=== PATIENT | male | born 1965 | race Caucasian/White ===

== ENCOUNTER 2022-08-31 17:36 | Inpatient (IN) ==
[2022-08-31] MEDS ORDERED: NITROGLYCERIN SL 0.4 MG/TAB TAB SL STA ×2 (18:06→18:27)
[2022-08-31] MEDS ORDERED: SODIUM CHLORIDE 0.9% 1000ML 500 ML IV ONE (18:06)
[2022-08-31] MEDS ORDERED: MoRPHine SULFATE 4 MG/ML 1 ML CARP\\VIAL ONE (18:22)
[2022-08-31 18:25] LABS: Basophils # (auto) 0.12 K/uL (0-0.2); Basophils % (auto) 0.9 %; Eosinophils # (auto) 0.07 K/uL (0-0.50); Eosinophils % (auto) 0.5 %; Hematocrit (blood only) 45.3 % (42.0-52.0); Hemoglobin 15.5 g/dl (14.0-18.0); Immature Granulocytes # (auto) 0.05 K/uL (0.01-0.20); Immature Granulocytes % (auto) 0.4 %; Lymphocytes # (auto) 4.33 K/uL (1.2-3.4); Lymphocytes % (auto) 31.7 %; Mean Corpuscular Hemoglobin 31.1 pg (25.0-34.0); Mean Corpuscular Hgb Conc 34.2 g/dL (32.0-36.0); Mean Platelet Volume 10.2 fL (9.4-12.4); Monocytes # (auto) 0.59 K/uL (0.11-0.59); Monocytes % (auto) 4.3 %; Neutrophils # (auto) 8.48 K/uL (1.40-6.50); Neutrophils % (auto) 62.2 %; Platelet Count 368 K/uL (130-400); RDW Coefficient of Variation 13.1 % (11.5-14.5); RDW Standard Deviation 43.6 fL (36.4-46.3); Red Blood Count 4.98 M/uL (4.70-6.10); White Blood Count 13.64 K/ul (4.8-10.8)
--- NOTE | 2022-08-31 18:28 | Emergency Department Note ---
Impression & Plan ST elevation myocardial infarction (STEMI), Chest pain, Nausea, Diaphoresis ED Provider Note Provider: Cristian Ahn MD DATE OF SERVICE: 08/31/2022 CHIEF COMPLAINT: Chest discomfort, nausea, shortness of breath HISTORY OF PRESENT ILLNESS: Patient is a 57-year-old gentleman presenting via am bulance the onset between 4 and 430 this afternoon of significant chest discomfort radiating to the jawline experience nausea and episode of vomiting this is some shortness of breath. Was pale and diaphoretic according to family and EMS upon arrival. Patient's symptoms have abated some with IV fluids and aspirin and Zofran in route. Denies significant GI upset. States he had a little bit of increased fatigability over the past month. Rates his pain currently at 6 out of 10 across the chest to the bilateral jaw. Denies any trauma or syncope. PAST MEDICAL HISTORY: As noted above MEDICATIONS: Denies regular medications FMH: When asked he reports he does have a family history but does not elaborate further for cardiac disease SOCIAL HISTORY: , smoker PHYSICAL EXAM: GENERAL: alert and oriented in no acute distress on stretcher Head: normocephalic and atraumatic EYES: No injection, discharge or icterus. NECK: Trachea midline. ENT: Mucous membranes pink and moist. LUNGS: Airway patent. No retractions. Breath sounds clear with good air entry bilaterally. HEART: Regular rate and rhythm. No chest wall tenderness ABDOMEN: Soft and non-tender, without guarding or rebound. SKIN: Acyanotic, warm, still slightly diaphoretic, without rashes EXTREMITIES: Without swelling, tenderness or deformity NEUROLOGICAL: No focal deficits. No aphasia. No facial droop or slurred speech. EK bpm normal sinus rhythm. No PVC or PAC. QTc 433. No acute ST segment elevation with some slight prominence of the V3 ST segment but no clear contiguous ST elevation. EKG: Completed at 1814: 80 bpm normal sinus rhythm with peaked anterior lateral T waves with ST segment elevation in V1 through V3 with some lead I and II ST depression noted. QTc 431. EK: 70 bpm normal sinus rhythm with sinus arrhythmia. No PVC or PAC. Improvement of anterior ST elevation from prior. No significant inferior ST depression noted. CONTINUOUS CARDIAC MONITORING: was ordered and showed a heart rate of 60s-80s bpm in normal sinus rhythm Patient's laboratory studies and imaging reviewed. Differential includes Cardiac ischemia, aortic dissection, pulmonary embolism, pneumothorax, pneumonia, pericarditis, myocarditis, esophageal rupture, GERD, cholecystitis, pancreatitis, musculoskeletal, as well as other pathologies. IMPRESSION/MEDICAL DECISION MAKING: Patient received after Zofran prior to arrival with some IV fluid. General chest pain shortness of breath with nausea and vomiting and diaphoresis as well as pallor reported. Patient with some improvement upon arrival initially. Initial EKG without clear ST segment elevation. Basic labs were ordered. Question possible cardiac event but no clear STEMI initially. Patient while here undergoing work-up in short order had onset of maximal pain. Tachypneic and pale in appearance appears in some distress. Repeat EKG obtained with concerning precordial/anterior ST elevation with some slight inferior depression. Heart alert was called. Patient given nitroglycerin and in short order his pain began to moderate. Repeat EKGs obtained showed less prominent ST elevation. thread spinner evaluated at bedside and discussed with the patient while he is having some improvement of symptoms now given the EKG changes recommendation is for cardiac catheterization. Held off on chest x-ray and I low suspicion for pneumonia, pneumothorax, or PE at this time. Not severely hypertensive and low suspicion for dissection. Discussion with well surveying engineer ordered Brilinta and heparin per his direction. Updated patient's and patient taken to the cardiac catheterization lab for further care and evaluation of what appears to be concerning coronary artery disease. Basic blood work without anemia. Slight leukocytosis could be reactive. No significant kidney dysfunction with mild hypokalemia 3.2 noted. Initial high- sensitivity troponin is elevated at 28 with normal lipase. Again to the Core Winding Operator for emergent care prior to full results available blood work. DIAGNOSIS: STEMI, chest pain DISPOSITION: Taken to the cardiac catheterization lab for evaluation Critical Care I have personally spent 31 minutes of critical care time in the direct management of this patient. This includes bedside care, interpretation of diagnostic studies, and testing, discussion with consultants, patient, and family members, and other required patient management activities. These 31 minutes is in excess of all separately billable procedures. Past Med/Surg History Social History Smoking Status: Current every day smoker Tobacco Type: Cigarettes Feels Safe at Home: Yes Allergies Allergies Allergy/AdvReac Type Severity Reaction Status Date / Time PENICILLIN Allergy unknown Uncoded 08/31/22 18:57 Home Meds Home Medications Medication Instructions Recorded Confirmed No Known Home Medications 08/31/22 08/31/22 Results & Data (ED) Vital Signs Vital Signs - 24 hr 08/31/22 17:20 08/31/22 17:20 08/31/22 17:46 Temperature 36.5 C Temperature Source Oral Pulse Rate 61 Pulse Rate from SpO2 Sensor Respiratory Rate 15 Respiratory Effort / Characteristics Non-Labored Spontaneous Respiratory Depth Normal Respiratory Pattern Regular Blood Pressure 142/97 H Blood Pressure Mean 112 Pulse Oximetry 99 99 99 Oxygen Delivery Method Room Air Room Air Room Air Oxygen Flow Rate 0 Sepsis Recent Fever Within 48 Hours No Sepsis New/Unexplained Change in Mental Status N/A Sepsis Action Taken by Nursing No Action Required 08/31/22 17:52 08/31/22 17:44 08/31/22 17:50 Temperature Temperature Source Pulse Rate 60 72 71 Pulse Rate from SpO2 Sensor 68 71 Respiratory Rate 12 19 Respiratory Effort / Characteristics Respiratory Depth Respiratory Pattern Blood Pressure Blood Pressure Mean Pulse Oximetry 94 98 Oxygen Delivery Method Oxygen Flow Rate Sepsis Recent Fever Within 48 Hours Sepsis New/Unexplained Change in Mental Status Sepsis Action Taken by Nursing 08/31/22 18:00 08/31/22 18:00 08/31/22 18:10 Temperature Temperature Source Pulse Rate 70 68 Pulse Rate from SpO2 Sensor 71 66 Respiratory Rate 11 L 16 Respiratory Effort / Characteristics Respiratory Depth Respiratory Pattern Blood Pressure 134/85 Blood Pressure Mean 102 Pulse Oximetry 94 100 Oxygen Delivery Method Oxygen Flow Rate Sepsis Recent Fever Within 48 Hours Sepsis New/Unexplained Change in Mental Status Sepsis Action Taken by Nursing 08/31/22 18:20 08/31/22 18:20 08/31/22 18:29 Temperature Temperature Source Pulse Rate 70 81 Pulse Rate from SpO2 Sensor 69 Respiratory Rate 15 17 Respiratory Effort / Characteristics Respiratory Depth Respiratory Pattern Blood Pressure 148/91 H Blood Pressure Mean 103 Pulse Oximetry 97 Oxygen Delivery Method Oxygen Flow Rate Sepsis Recent Fever Within 48 Hours Sepsis New/Unexplained Change in Mental Status Sepsis Action Taken by Nursing 08/31/22 18:29 08/31/22 18:30 08/31/22 18:40 Temperature Temperature Source Pulse Rate 84 88 Pulse Rate from SpO2 Sensor 81 89 Respiratory Rate 14 16 Respiratory Effort / Characteristics Respiratory Depth Respiratory Pattern Blood Pressure 124/87 Blood Pressure Mean 95 Pulse Oximetry 99 94 Oxygen Delivery Method Room Air Oxygen Flow Rate Sepsis Recent Fever Within 48 Hours Sepsis New/Unexplained Change in Mental Status Sepsis Action Taken by Nursing Laboratory Data 08/31/22 17:51 08/31/22 17:51 Lab Results 08/31/22 08/31/22 08/31/22 Range/Units 17:51 17:51 17:51 WBC 13.64 H (4.8-10.8) K/ul RBC 4.98 (4.70-6.10) M/uL Hgb 15.5 (14.0-18.0) g/dl Hct 45.3 (42.0-52.0) % MCV 91.0 (80.0-100.0) fL MCH 31.1 (25.0-34.0) pg MCHC 34.2 (32.0-36.0) g/dL RDW Std Deviation 43.6 (36.4-46.3) fL RDW Coeff of Brayden 13.1 (11.5-14.5) % Plt Count 368 (130-400) K/uL MPV 10.2 (9.4-12.4) fL Immature Gran % (Auto) 0.4 % Neut % (Auto) 62.2 % Lymph % (Auto) 31.7 % [place] % (Auto) 4.3 % Eos % (Auto) 0.5 % Baso % (Auto) 0.9 % Neut # (Auto) 8.48 H (1.40-6.50) K/uL Lymph # (Auto) 4.33 H (1.2-3.4) K/uL [place] # (Auto) 0.59 (0.11-0.59) K/uL Eos # (Auto) 0.07 (0-0.50) K/uL Baso # (Auto) 0.12 (0-0.2) K/uL Immature Gran # (Auto) 0.05 (0.01-0.20) K/uL PT 10.5 (9.0-12.0) Seconds INR 1.0 (0.9-1.1) APTT 22.9 (21.0-31.0) Seconds PTT Ratio 0.8 Sodium 140 (136-145) mmol/L Potassium 3.2 L (3.5-5.1) mmol/L Chloride 105 (98-107) mmol/L Carbon Dioxide 23 (21-32) mmol/L Anion Gap 12 H (3-11) BUN 17 (6-23) mg/dl Creatinine 0.99 (0.6-1.4) mg/dl Est Cr Clr Drug Dosing 99.1 ml/min Est GFR ( Amer) 98.3 ml/min Est GFR (Non-Af Amer) 84.8 ml/min BUN/Creatinine Ratio 17.2 (10-20) Glucose 133 H (70-99(Fasting)) mg/dl Calcium 9.6 (8.6-10.3) mg/dl Total Bilirubin 0.4 (0.2-1.0) mg/dl AST 17 (13-39) U/L ALT 23 (7-52) U/L Alkaline Phosphatase 84 (34-104) U/L Troponin I High Sens 28.8 H (0-20) pg/ml Total Protein 7.5 (6.0-8.3) gm/dl Albumin 4.6 (3.4-5.0) gm/dl Globulin 2.9 (2.5-4.0) gm/dl Albumin/Globulin Ratio 1.6 (0.9-2) Lipase 5 L (11-82) U/L SARS-CoV-2, RNA, NAAT (NEGATIVE) 08/31/22 Range/Units 18:38 WBC (4.8-10.8) K/ul RBC (4.70-6.10) M/uL Hgb (14.0-18.0) g/dl Hct (42.0-52.0) % MCV (80.0-100.0) fL MCH (25.0-34.0) pg MCHC (32.0-36.0) g/dL RDW Std Deviation (36.4-46.3) fL RDW Coeff of Brayden (11.5-14.5) % Plt Count (130-400) K/uL MPV (9.4-12.4) fL Immature Gran % (Auto) % Neut % (Auto) % Lymph % (Auto) % [place] % (Auto) % Eos % (Auto) % Baso % (Auto) % Neut # (Auto) (1.40-6.50) K/uL Lymph # (Auto) (1.2-3.4) K/uL [place] # (Auto) (0.11-0.59) K/uL Eos # (Auto) (0-0.50) K/uL Baso # (Auto) (0-0.2) K/uL Immature Gran # (Auto) (0.01-0.20) K/uL PT (9.0-12.0) Seconds INR (0.9-1.1) APTT (21.0-31.0) Seconds PTT Ratio Sodium (136-145) mmol/L Potassium (3.5-5.1) mmol/L Chloride (98-107) mmol/L Carbon Dioxide (21-32) mmol/L Anion Gap (3-11) BUN (6-23) mg/dl Creatinine (0.6-1.4) mg/dl Est Cr Clr Drug Dosing ml/min Est GFR ( Amer) ml/min Est GFR (Non-Af Amer) ml/min BUN/Creatinine Ratio (10-20) Glucose (70-99(Fasting)) mg/dl Calcium (8.6-10.3) mg/dl Total Bilirubin (0.2-1.0) mg/dl AST (13-39) U/L ALT (7-52) U/L Alkaline Phosphatase (34-104) U/L Troponin I High Sens (0-20) pg/ml Total Protein (6.0-8.3) gm/dl Albumin (3.4-5.0) gm/dl Globulin (2.5-4.0) gm/dl Albumin/Globulin Ratio (0.9-2) Lipase (11-82) U/L SARS-CoV-2, RNA, NAAT NEGATIVE (NEGATIVE) Administered Medications Discontinued Medications Heparin Sodium (Porcine) (Heparin Sod (Porcine) 1000 Unit/Ml) 5,000 units IV NOW ONE Stop: 08/31/22 18:38 Last Admin: 08/31/22 18:40 Dose: 5,000 units Documented By: DEMI Co-signed By: BALTAZAR Sodium Chloride (Nss 1000ml) 500 mls @ 999 mls/hr IV .Q31M ONE Stop: 08/31/22 18:36 Last Admin: 08/31/22 18:15 Dose: 999 mls/hr Documented By: DEMI Nitroglycerin (Nitroglycerin Sl 0.4 Mg/Tab Tab) 0.4 mg SL NOW STA Stop: 08/31/22 18:07 Last Admin: 08/31/22 18:15 Dose: 0.4 mg Documented By: DEMI Nitroglycerin (Nitroglycerin Sl 0.4 Mg/Tab Tab) 0.4 mg SL NOW STA Stop: 08/31/22 18:28 Last Admin: 08/31/22 18:23 Dose: 0.4 mg Documented By: DEMI Ticagrelor (Ticagrelor 90 Mg Tab) 180 mg PO ONE ONE Stop: 08/31/22 18:38 Last Admin: 08/31/22 18:39 Dose: 180 mg Documented By: DEMI Discharge Plan Visit Data Chief Complaint: Chest Pain ED Provider: Cristian Ahn Patient Disposition: Admitted As Inpatient Discharge Instructions Interventions: ED Discharge Assessment Last Done: 08/31/22 18:45 Prescriptions Prescriptions: No Action No Known Home Medications
[2022-08-31] MEDS ORDERED: MIDAZOLAM HCL 1 MG/ML 2ML VIAL ONE (18:36)
[2022-08-31] MEDS ORDERED: NITROGLYCERIN/D5W 100MCG/ML 20ML SYR ONE (18:37)
[2022-08-31] MEDS ORDERED: TICAGRELOR 90 MG TAB PO ONE (18:37)
[2022-08-31] MEDS ORDERED: HEPARIN SOD (PORCINE) 1000 UNIT/ML IV ONE (18:37)
[2022-08-31] MEDS ORDERED: HEPARIN SOD (PORCINE) 1000 UNIT/ML ONE (18:37)
[2022-08-31] MEDS ORDERED: HEPARIN (PORCINE) 1000 UNIT/ML 10 ML (CATH LAB USE ONLY) ONE (18:37)
[2022-08-31] MEDS ORDERED: TICAGRELOR 90 MG TAB ONE (18:37)
[2022-08-31] MEDS ORDERED: niCARdipine HCL INJ 2.5 MG/ML 10 ML AMP ONE (18:37)
[2022-08-31] MEDS ORDERED: fentaNYL citrate PF 100 MCG/2 ML VIAL ONE (18:37)
[2022-08-31 18:43] LABS: Albumin Globulin Ratio 1.6 (0.9-2); Albumin Level 4.6 gm/dl (3.4-5.0); BUN Creatinine Ratio 17.2 (10-20); Bilirubin,Total 0.4 mg/dl (0.2-1.0); Calcium 9.6 mg/dl (8.6-10.3); Creatinine Clr Calc Pharmacy 99.1 ml/min; Est GFR (African American) 98.3 ml/min; Est GFR (Non-African American) 84.8 ml/min; Globulin 2.9 gm/dl (2.5-4.0); Potassium 3.2 mmol/L (3.5-5.1); Total Protein 7.5 gm/dl (6.0-8.3)
[2022-08-31 18:49] LABS: Troponin I High Sensitivity 28.8 pg/ml (0-20)
[2022-08-31 18:54] LABS: Partial Thromboplastin Ratio 0.8; Partial Thromboplastin Time 22.9 Seconds (21.0-31.0); Prothrombin Time 10.5 Seconds (9.0-12.0)
[2022-08-31] MEDS ORDERED: EPTIFIBATIDE 2 MG/ML 10 ML VIAL (CATH LAB USE ONLY) IV ONE (19:43)
[2022-08-31] MEDS ORDERED: ONDANSETRON INJ 2 MG/ML 2 ML VIAL IV PRN (20:15)
[2022-08-31] MEDS ORDERED: EPTIFIBATIDE BOLUS/DRIP IV STA (20:15)
[2022-08-31] MEDS ORDERED: ATROPINE SULFATE 0.1 MG/ML 10ML SYR IV PRN (20:15)
[2022-08-31] MEDS ORDERED: POTASSIUM CHLORIDE CRTAB 20 MEQ TABCR PO STA (20:29)
[2022-08-31] MEDS: EPTIFIBATIDE 75 MG/100 ML VIAL IV SCH (20:30)
--- NOTE | 2022-08-31 20:32 | Pre Anesthesia Assessment ---
Date of Service August 31, 2022 Pre Sedation Assessment Vital Signs Temp Pulse Resp BP Pulse Ox O2 Del Method O2 Flow Rate 08/31/22 18:40 88 16 94 Room Air 08/31/22 18:30 84 14 99 08/31/22 18:29 124/87 08/31/22 18:29 81 17 08/31/22 18:20 70 15 97 08/31/22 18:20 148/91 H 08/31/22 18:10 68 16 100 08/31/22 18:00 70 11 L 94 08/31/22 18:00 134/85 08/31/22 17:50 71 19 98 08/31/22 17:44 72 12 94 08/31/22 17:52 60 08/31/22 17:46 99 Room Air 08/31/22 17:20 99 Room Air 0 08/31/22 17:20 36.5 C 61 15 142/97 H 99 Room Air Cardiovascular RRR, no murmur, no edema Respiratory normal respiratory effort, lungs clear to auscultation Pre-Sedation Airway Assessment Smoking Status: Current every day smoker Mallampati 2 ASA IV Notes The planned sedation has been discussed with the patient. Informed Consent was obtained. I have identified the patient, determined the appropriateness of sedation and have assessed the patient immediately prior to the procedure. All medicine(s) and interventions are by my order.
--- NOTE | 2022-08-31 20:34 | Post Anesthesia Assessment ---
Date of Service August 31, 2022 Post Sedation Assessment Vital Signs Temp Pulse Resp BP Pulse Ox O2 Del Method O2 Flow Rate 08/31/22 18:40 88 16 94 Room Air 08/31/22 18:30 84 14 99 08/31/22 18:29 124/87 08/31/22 18:29 81 17 08/31/22 18:20 70 15 97 08/31/22 18:20 148/91 H 08/31/22 18:10 68 16 100 08/31/22 18:00 70 11 L 94 08/31/22 18:00 134/85 08/31/22 17:50 71 19 98 08/31/22 17:44 72 12 94 08/31/22 17:52 60 08/31/22 17:46 99 Room Air 08/31/22 17:20 99 Room Air 0 08/31/22 17:20 36.5 C 61 15 142/97 H 99 Room Air Recovery Score Activity: Moves 4 extremities Respiration: Deep Breath/Cough Circulation: +/-20% PreAnes Value Consciousness: Fully Awake Oxygen Saturation: > 92% On Room Air Discharge Sedation Level of Care: Fast Track Phase II Post Sedation Plan On clinical assessment, the patient appears to have tolerated the sedation without complications. Patient is recovering as anticipated. Patient will continue to be monitored by nursing and may be discharged when sedation discharge criteria are met per below protocol. Upon Completions of procedure up to 15 minutes continue every 5 minute vital signs and the P.A.R. score; then discharge to a Phase I or Fast Track to Phase II per the following guidelines: * Discharge Patient to appropriate Phase II area if PAR is 8 or greater or return to pre- procedure baseline. The post - procedure orders will be as directed. * If PAR score is less than 8 or not return to pre-procedure baseline then patient will follow Phase I monitoring till PAR is reached for Phase II. The Phase I may be done in procedure room or may call to secure a Phase I area. * If naloxone or flumazenil are used for reversal, hold in Phase I for continued monitoring from when last reversal dose was given for a minimum of 60 minutes or longer pending the nurse and/or physician discretion of patient condition before discharge to Phase II. Please call the Sedation Physician to re-evaluate and complete post-note for discharge to Phase II area. Do NOT discharge from procedure sedation or Phase 1 until post- sedation evaluation note is complete by procedure /sedation MD Sedation Discharge Instructions to be given to the patient at discharge to home. [facility] [place]es) Indication for Procedure Indication for procedure: STEMI Sedation/Anesthesia Procedure 1: Sedation/Anesthesia: 80611 Mod Sedation by the same physician;Init15 Min Child Age 5 & Up (Start time 1858, end time 2002) Total Sedation Time (minutes): 64 Procedure 2: Sedation/Anesthesia: 08612 Mod Sedation by the same physician; Ea [id number] Minutes (Additional 49 min, start 1858 end 2002) Total Sedation Time (minutes): 64
--- NOTE | 2022-08-31 20:46 | Cardiac Catheterization ---
[facility] Data: Deflector Operator Cardiac Status Clinical evaluation leadin STEMI g to the procedure CAD Presenation: STEMI Anginal Classification: CCS IV Heart Failure: No Cardiogenic Shock within 24 Hours: No Cardiac Arrest within 24 Hours: No Imaging Studies Past 6 Months: No STEMI OR Non-STEMI Symptom Onset Date: 08/31/22 Symptom Onset Time: 16:00 Thrombolytics: No Coronary Anatomy Dominant: Right Left Main (% Stenosis): Distal (20%) LAD (% Stenosis): Mid (99% hazy) D1 (% Stenosis): Normal D2 (% Stenosis): Ostial (99%) Circumflex (% Stenosis): Normal OM1 (% Stenosis): Proximal (50 to 60%) RCA (% Stenosis): Mid (Calcified 30%) R PDA (% Stenosis): Ostial (Up to 50%) R PL1 (% Stenosis): Normal Ramus (% Stenosis): Normal Diagnostic Physicians Name: Tej Gupta MD, PhD Closure Device Percutaneous Entry Location: Radial Closure Device: Radial Band Recommendations: Medical Therapy and/or Counseling and PCI without planned CABG PCI Indication: PCI for STEMI - Stable First Noted: Subsequent EKG Lesion Segment Name: Mid LAD Culprit Artery: Yes Stenosis Prior to Rx (%): 99 Chronic Total Occlusion: No Pre-Procedure KATT Flow: 2 Previously Treated Lesion: No Lesion Complexity: High/C Lesion Length (mm): 25 Thrombus Present: Yes Bifurcation Lesion: Yes Guidewire Across Lesion: Yes Intraprocedure Events Significant Disection: No Perforation: No Cardiac Cath Procedure Full Procedure Date August 31, 2022 Pre-Procedure Diagnosis Pre-Procedure Diagnosis: STEMI AUC Score AUC Score: 09 Post-Procedure Diagnosis Post-Procedure Diagnosis: Severe CAD Procedure(s) Performed Procedure(s) Performed: Coronary Angiography and Drug Eluting Stent Puncher And Fastener Tej Gupta MD, PhD Estimated Blood Loss Estimated Blood Loss: 15 mL Medication(s) Medication(s): Fentanyl, Heparin, Integrilin, Lidocaine 1%, Nicardipine, Nitroglycerin and Versed Summary of Findings Brief description: Patient was brought to the cardiac catheterization suite where he was shaved and prepped in a sterile fashion. Sedated using IV Versed and fentanyl. Soft tissues of the right wrist were anesthetized using 2 mL of 1% Xylocaine. The right radial artery was accessed with a modified Seldinger technique and a 6 [place]ian radial artery glide sheath was placed. Patient was provided anticoagulation with IV heparin and antispasmodics including nicardipine and nitroglycerin. All catheters were advanced and exchanged over a 0.035 J-tip wire. Right coronary angiography was performed in orthogonal views with a 5 [place]ian JR4 diagnostic catheter. Left coronary angiography was performed in orthogonal views with a 6 [place] EBU 3.0 guide catheter. We next proceeded with PCI. ACT was checked intermittently and additional heparin was provided as needed to maintain therapeutic anticoagulation. Patient had received aspirin and Brilinta prior to arrival in the Deflector Operator. He BMW number so guidewire was advanced and positioned distally in the LAD. A second BMW reversal guidewire was advanced and directed into the large diagonal where it was then positioned distally. The LAD lesion was predilated multiple times using a 2.5 x 12 mm trek balloon inflated up to 8 chicho. The BMW reversal guidewire in the diagonal was removed. A 2.5 x 30 mm Ensign drug-eluting stent was advanced and positioned across the entire diseased segment. This was deployed at 14 chicho. The stent balloon was removed. The stent was postdilated from the diagonal back to the proximal edge of the stent using a 2.75 x 20 mm NC trek balloon inflated at a maximum of 16 chicho. This balloon was removed. The proximal to midportion of the stent was then postdilated using a 3.0 x 20 NC trek balloon inflated to 18 chicho. BMW was redirected across the stent struts and then advanced down the diagonal branch. A 2.0 x 9 mm NC sprinter was advanced over this guidewire and positioned across the stent struts in the ostium of the diagonal. This was then dilated to 18 chicho. The balloon was then deflated and removed along with the guidewire. Floor Installer angiography was performed and there was noted to be some thrombus in the stent. Therefore, additional heparin was administered as was Integrilin at a double bolus administration followed by a drip. Final angiographic evaluation was performed. Guide catheter was removed over the J-wire. Radial artery sheath was removed and hemostasis was obtained using the TR band. Patient was hemodynamically stable and asymptomatic. He was then admitted to the ICU. This ended the case. Coronary angiography findings: LMT-large caliber vessel which trifurcates into the LAD, ramus, and circumflex. Distal 20% stenosis. LAD-large caliber and transapical. Proximal segment relatively short without disease. It provides a large septal trunk and a medium caliber high arising first diagonal. Then the mid segment has a long eccentric hazy 90 to 95% narrowing. It provides a large caliber branching second diagonal which has ostial 99% stenosis. Beyond the mid segment stenosis there is KATT II flow in the distal LAD has a short intramyocardial course and scattered mild disease. Ramus-small caliber without significant disease LCx-large caliber and nondominant. Proximal AV groove vessel has mild luminal irregularities and gives a large caliber branching OM1. This has proximal 50 to 60% stenosis. The mid and distal AV groove circumflex are much smaller and taper distally where it terminates. MCE-[id number] and dominant. Proximal segment is tortuous with no more than mild luminal irregularities. The mid segment has a calcified 30% stenosis. The RCA then provides a large caliber long PDA which appears in some views to have an ostial 50% stenosis. The distal RCA also provides a large caliber branching posterolateral with no significant disease. PCI of LAD and ostial diagonal: There is less than 10% residual stenosis post PCI. KATT-3 flow post PCI No evidence of dissection or perforation post PCI The ostial D2 lesion is reduced to 40 to 50% with KATT-3 flow distally. Summary: 1. Acute ST elevation KS secondary to severe stenosis of the mid LAD and ostial second diagonal. 2. Successful PCI with implantation of a long drug-eluting stent spanning the mid and early distal LAD. This stent was tapered with postdilatation for final diameter of 3.11 mm at the proximal edge and 2.5 mm at the distal edge. Also the jailed severely diseased second diagonal ostium was dilated with a 2.0 mm balloon. 3. There is mild to moderate residual disease in the circumflex OM branch. 4. Recommend dual antiplatelet therapy with aspirin 81 mg daily and Brilinta 90 mg p.o. twice daily. Patient will continue on Integrilin drip to complete 8 hours therapy. 5. Initiate guideline directed medical therapy for secondary prevention of coronary disease including; high intensity statin therapy, beta-benji, plus or minus ZANDRA inhibitor/ARB. We will also check for occult diabetes, check lipid panel, and thyroid function. LV function will be assessed by echocardiogram. Hemodynamics Rest Ao:: 112/69 mmHg Final Ao: 121/70 mmHg LV: Not performed Recommendations Recommendations: Medical Therapy and/or Counseling and PCI without planned CABG Radiation Exposure (mGy) 3317 mGy, fluoroscopy time 21 minutes Contrast (mls) 220 Anesthesia 1 mg IV Versed, 25 mcg IV fentanyl. Start time 1858, end time 2002 Procedural Complication(s) None Disposition ICU I attest to the content of the Intraoperative Record and any orders documented therein. Any exceptions are noted below. [facility] [place] Cath Procedure Codes Cardiac Catheterization Procedure 1: Cardiovascular Cath Procedures: 54101 Coronaries Moderate Sedation Procedure 1: Sedation/Anesthesia: 87177 Mod Sedation by the same physician;Init15 Min Child Age 5 & Up (Initial 15 min, total 64 man (start 1858)) Procedure 2: Sedation/Anesthesia: 43652 Mod Sedation by the same physician; Ea [id number] Minutes (Additional 49 min, total 64 min (end 2002)) Stenting Procedure 1: Cardiovascular Stent Procedures: 66415 Perc transluminal revascularization of acute sub/total occl, aMI (LAD) PG Care Time/CCT Total # of Minutes Spent Total Time Spent with Patient: Total time spent is greater than 50% in coordination of care (as documented) at patient's floor/unit and/or counseling patient:
--- NOTE | 2022-08-31 20:55 | Critical Care Consultation ---
Date of Consultation August 31, 2022 Assessment & Plan (1) ST elevation myocardial infarction (STEMI): (2) Chest pain: (3) Current smoker: Plan Reason Critically Ill: 57 YOM presented to the EMD with chest pain with radiation to back, jaw, arms associated with nausea, vomiting, and diaphoresiss. He was noted to have ST elevation on ECG and was taken to [facility], where he received 1 YANNI to LAD. To ICU following intervention. Neuro - NO acute needs CAM ICU: negative Cardiac - STEMI with YANNI to [place] LAD - currently chest pain free - Repeat ECG post procedure and with any chest pain - Lipid panel in morning, HGBA1c in morning - DAPT therapy per Cardiology- Integrilin drip per cardiology - BB/ZANDRA/ARB as indicated - Right Radial arterial access site with no acute needs- reduce pressure and dressing per protocol - ECHO in morning - Cost of medications will likely need to be addressed as he reports he is in and out of work Respiratory - Current smoker - Smoking cessation - patient does not feel need to quit currently GI - No acute needs - Advance diet as tolerated RENAL/LYTES - Hypokalemia - Currently 3.2- 40 meq KCL placed - No acute needs ENDO - No acute needs - HGB A1c in morning HEME - No acute needs ID - No acute needs or suspicion of infective process LINES/IV ACCESS - PIV Continue use of these lines DVT PROPHYLAXIS - SCDS DISPO- ICU through tonight follow hemodynamics and symptoms I have personally spent 35 minutes of critical care time in the direct management of this patient. This is a life/limb threatening event. This includes time spent evaluating patient, direct bedside care, chart review, placing orders, interpretation of diagnostic studies, discussion with consultants, patient, and family members, as well as other required patient management acti vities. This time is exclusive of all separately billable procedures, and separate from and in addition to any other critical care service time. Thank you for allowing us to participate in the care of this patient. Please refer to my attending physician's documentation for any further recommendations. History of Present Illness Reason for Consultation: S/P stent to LAD Requesting Physician: Tej Gupta Attending Physician: Tej Gupta MD, PhD History of Present Illness 57 YOM that reports no medical problems and follows with [facility] for any issues: He does report chronic back pain for which he takes baclofen and Motrin at home. Endorses no other medications. Also reports that he is active smoker- 1- packs per day x 10 years. Denies any ETOH or other drug use. Patient reports that around 4-430 today he was moving a refrigerator up some steps and started to not feel well. Initially with dyspnea that quickly progressed to chest pain that went to his back, radiated to his jaw, and down his bilateral arms with numbness and tingling. This was also associated with cold sweats, nausea and vomiting. This was not relieved until he got to the EMD and received NTG. Patient endorses that he has not been feeling well for the past 3-4 months noting feeling easily fatigued, dyspnea with exertion, and, nausea with activity as well as pain in bilateral legs with walking- which sounds like claudication. He had ECG's performed with ST elevation. He was loaded with ASA, Brilinta and taken to the [facility] by interventional cardiology - Dr. Gupta- he received 1 YANNI to LAD and was sent to ICU on Integrilin infusion post procedure- further review of cath procedure note- notes residual disease in the circ OM branch. Patient will be monitored overnight, ECG on arrival, ECHO in morning and DAPT therapy per cardiology. He has radial arterial puncture site with TR band in place. CODE: FULL Allergies Allergy/AdvReac Type Severity Reaction Status Date / Time Penicillins Allergy Unknown Verified 08/31/22 21:12 Home Medications Medication Instructions Recorded Confirmed Type No Known Home Medications 08/31/22 08/31/22 History Patient History Medical History Chronic back pain Surgical History S/P ACL repair Family History Other Coronary heart disease Heart disease Hypertension Lung disease Social History Smoking Status: Current every day smoker Tobacco Type: Cigarettes Cigarettes Per Day: 20; Do You Dip or Chew Tobacco: No; Hx Alcohol Use: No Hx Substance Use: No Preferred Language: Spanish Communication Ability: Effective Pan Pusher Required: No Beliefs That Will Affect Care: None Current Living Situation: Spouse Feels Safe at Home: Yes Assistive Devices: None Review of Systems Review of Systems: REVIEW OF SYSTEMS: Constitutional: No fever, sweats or chills Eyes: No diplopia, no worsening or blurred vision ENT: normal hearing, no trouble swallowing Respiratory: (+) dyspnea with exertion, No cough, sputum, dyspnea at rest or on exertion Cardiovascular: (+) chest pain, tightness, lower leg pain with activity no palpitations Abdomen:(+) nausea with activity No pain, nausea, vomiting, diarrhea or constipation Musculoskeletal: No joint pain, calf pain, swelling Neurologic: No weakness, numbness/tingling, or balance problems Psychiatric: No anxiety or depression Skin: No rash or itch Physical Exam Physical Exam: PHYSICAL EXAM: General: awake, alert, no apparent distress Head: Normocephalic, atraumatic ENT: PERRL, EOMI, no pharyngeal exudate, mucous membranes moist Neuro: AAO x 3, speech clear and appropriate, strength intact bilaterally 5/5, sensation intact and equal all extremities and dermatomes, no pronator drift Chest: equal rise and fall of the chest, no accessory muscle use, no heaves or thrills, Clear to auscultation, on room air, Cardiac: Regular rate and rhythm, telemetry reviewed- NSR, skin warm dry, cap refill <3 seconds, peripheral pulses +2 no JVD, no murmur, no edema GI: NABS x 4 quadrants, soft, nontender to palpation, no rebound, guarding or tenderness : Spontaneously voiding, no pain, no CVA tenderness, Extremities: Normal inspection, no peripheral edema or erythema, calfs nontender to palpation Psych: Normal mood and affect Skin: no rash or erythema Results & Data Results & Data Vital Signs (Past 12 Hours) Vital Signs Temp Pulse Resp BP Pulse Ox O2 Del Method O2 Flow Rate 08/31/22 18:40 88 16 94 Room Air 08/31/22 18:30 84 14 99 08/31/22 18:29 124/87 08/31/22 18:29 81 17 08/31/22 18:20 70 15 97 08/31/22 18:20 148/91 H 08/31/22 18:10 68 16 100 08/31/22 18:00 70 11 L 94 08/31/22 18:00 134/85 08/31/22 17:50 71 19 98 08/31/22 17:44 72 12 94 08/31/22 17:52 60 08/31/22 17:46 99 Room Air 08/31/22 17:20 99 Room Air 0 08/31/22 17:20 36.5 C 61 15 142/97 H 99 Room Air Laboratory Results Abnormal lab results 08/31/22 08/31/22 08/31/22 Range/Units 17:51 17:51 19:04 WBC 13.64 H (4.8-10.8) K/ul Neut # (Auto) 8.48 H (1.40-6.50) K/uL Lymph # (Auto) 4.33 H (1.2-3.4) K/uL Activ Coag Time Kaolin 185 H (94-140) SECONDS Potassium 3.2 L (3.5-5.1) mmol/L Anion Gap 12 H (3-11) Glucose 133 H (70-99(Fasting)) mg/dl Troponin I High Sens 28.8 H (0-20) pg/ml Lipase 5 L (11-82) U/L 08/31/22 08/31/22 Range/Units 19:29 20:03 WBC (4.8-10.8) K/ul Neut # (Auto) (1.40-6.50) K/uL Lymph # (Auto) (1.2-3.4) K/uL Activ Coag Time Kaolin 233 H 221 H (94-140) SECONDS Potassium (3.5-5.1) mmol/L Anion Gap (3-11) Glucose (70-99(Fasting)) mg/dl Troponin I High Sens (0-20) pg/ml Lipase (11-82) U/L Medications Administered Discontinued Medications Eptifibatide (Eptifibatide 2 Mg/Ml 10 Ml Vial (Boiling Tub Operator Use Only)) Confirm Administered Dose 40 mg IV .STK-MED ONE Stop: 08/31/22 19:44 Last Admin: 08/31/22 19:52 Dose: 18 ml Documented By: TANMAY Heparin Sodium (Porcine) (Heparin Sod (Porcine) 1000 Unit/Ml) 5,000 units IV NOW ONE Stop: 08/31/22 18:38 Last Admin: 08/31/22 18:40 Dose: 5,000 units Documented By: DEMI Co-signed By: BALTAZAR Sodium Chloride (Nss 1000ml) 500 mls @ 999 mls/hr IV .Q31M ONE Stop: 08/31/22 18:36 Last Admin: 08/31/22 18:15 Dose: 999 mls/hr Documented By: DEMI Nitroglycerin (Nitroglycerin Sl 0.4 Mg/Tab Tab) 0.4 mg SL NOW STA Stop: 08/31/22 18:07 Last Admin: 08/31/22 18:15 Dose: 0.4 mg Documented By: DEMI Nitroglycerin (Nitroglycerin Sl 0.4 Mg/Tab Tab) 0.4 mg SL NOW STA Stop: 08/31/22 18:28 Last Admin: 08/31/22 18:23 Dose: 0.4 mg Documented By: DEMI Ticagrelor (Ticagrelor 90 Mg Tab) 180 mg PO ONE ONE Stop: 08/31/22 18:38 Last Admin: 08/31/22 18:39 Dose: 180 mg Documented By: DEMI Coding Level of Care Code 01184 CRITICAL CARE 1ST 30-74M Diagnoses ST elevation myocardial infarction (STEMI) I21.3 Chest pain R07.9 Current smoker F17.200
--- NOTE | 2022-08-31 21:20 | Cardiology Consultation ---
Date of Consultation August 31, 2022 History of Present Illness Reason for Consultation: Chest pain, ST elevations Attending Physician: Tej Gupta MD, PhD History of Present Illness 57-year-old gentleman with no known prior medical problems presented after developing sudden onset chest discomfort radiating to his neck with associated shortness of breath, diaphoresis, and nausea. Patient called his and asked her to come help him. On her arrival she states he was pale, diaphoretic, shortness of breath and looked very ill. They called EMS who transported the patient to the emergency department. He received aspirin in route. Initial EKG did not demonstrate ischemic EKG changes. He had a number of EKGs and 1 was performed while his pain increased. At that time he had evidence of progressive anterolateral ST elevations. The cardiac Reservations Sales Agent was not activated. On my arrival the patient's chest pain had improved somewhat after nitro and additional medications in the emergency department. His EKG did not show ST elevations at that time. However, reviewing all of his EKGs it was deemed prudent for us to proceed immediately with cardiac catheterization. I discussed the risk, benefits, and alternatives to the procedure in detail with the patient. His questions were answered in full. He voiced understanding and wished to proceed with catheterization. Patient then underwent coronary angiography revealing severe mid LAD and diagonal stenosis which appeared acute with thrombosis. He then underwent drug-eluting stent implantation with good angiographic results and resolution of his symptoms. He is now admitted to the ICU. The patient's reveals that the patient has had sudden onset of chest pain intermittently over the past several months. They have been under a lot of stress particularly of a financial nature. She has noted that he has lacked energy recently and both she and her mother felt that he was "not himself". They thought it was secondary to the stress and depression. The patient's prior chest pain episodes were less severe and resolved relatively quickly with rest. He has had no syncope, near syncope, orthopnea, PND, racing heartbeat, palpitations, or edema. Allergies Allergy/AdvReac Type Severity Reaction Status Date / Time Penicillins Allergy Unknown Verified 08/31/22 21:12 Home Medications Medication Instructions Recorded Confirmed Type No Known Home Medications 08/31/22 08/31/22 History Patient History Social History Smoking Status: Current every day smoker Tobacco Type: Cigarettes Feels Safe at Home: Yes Review of Systems Review of Systems: Negative except as per HPI Physical Exam Constitutional: WD/WN, vitals as above Eyes: PERRL, conjunctivae normal, anicteric sclerae ENMT: external ear and nose normal, oropharynx normal Neck: No JVD Respiratory: Clear to auscultation bilaterally. No wheezing, rhonchi, or rales. Cardiovascular: Regular rate and rhythm. S4 gallop. No rubs or murmurs. No edema. 2+ distal pulses. Musculoskeletal: no cyanosis or clubbing, extremities motor strength 5/5 Neurologic: Cognition is intact. Speech is fluent. No focal deficits. No tremor. Psychiatric: A+Ox3, euthymic affect (Slightly flat affect) Results & Data Vital Signs (Past 12 Hours) Vital Signs Temp Pulse Resp BP Pulse Ox O2 Del Method O2 Flow Rate 08/31/22 18:40 88 16 94 Room Air 08/31/22 18:30 84 14 99 08/31/22 18:29 124/87 08/31/22 18:29 81 17 08/31/22 18:20 70 15 97 08/31/22 18:20 148/91 H 08/31/22 18:10 68 16 100 08/31/22 18:00 70 11 L 94 08/31/22 18:00 134/85 08/31/22 17:50 71 19 98 08/31/22 17:44 72 12 94 08/31/22 17:52 60 08/31/22 17:46 99 Room Air 08/31/22 17:20 99 Room Air 0 08/31/22 17:20 36.5 C 61 15 142/97 H 99 Room Air PG Care Time/CCT Total # of Minutes Spent Total Time Spent with Patient: Total time spent is greater than 50% in coordination of care (as documented) at patient's floor/unit and/or counseling patient: Total Critical Care Time: 70 I spent a total of 70 minutes in initial evaluation, examination, review of the records, discussion with the patient, his , and the care team, as well as formulation and implementation of a plan of care. This includes all associated documentation. This is exclusive of the time spent for the procedure. Coding Level of Care Code 97132 CRITICAL CARE 1ST 30-74M Diagnoses
[2022-08-31] MEDS: METOPROLOL TARTRATE 25 MG TAB PO SCH (21:41)
[2022-08-31 22:02] LABS: Basophils # (auto) 0.06 K/uL (0-0.2); Basophils % (auto) 0.3 %; Eosinophils # (auto) 0.01 K/uL (0-0.50); Eosinophils % (auto) 0.1 %; Hematocrit (blood only) 46.1 % (42.0-52.0); Hemoglobin 15.6 g/dl (14.0-18.0); Immature Granulocytes % (auto) 0.5 %; Lymphocytes # (auto) 2.68 K/uL (1.2-3.4); Lymphocytes % (auto) 13.4 %; Mean Corpuscular Hemoglobin 31.2 pg (25.0-34.0); Mean Corpuscular Hgb Conc 33.8 g/dL (32.0-36.0); Mean Corpuscular Volume 92.2 fL (80.0-100.0); Mean Platelet Volume 9.4 fL (9.4-12.4); Monocytes # (auto) 0.84 K/uL (0.11-0.59); Monocytes % (auto) 4.2 %; Neutrophils % (auto) 81.5 %; Platelet Count 371 K/uL (130-400); RDW Coefficient of Variation 13.1 % (11.5-14.5); RDW Standard Deviation 44.4 fL (36.4-46.3); White Blood Count 19.99 K/ul (4.8-10.8)
[2022-08-31 22:08] LABS: Estimated Average Glucose 120 mg/dl; Hemoglobin A1C 5.8 % (4.5-5.6)
[2022-08-31] MEDS: ICU Protocol for HYPERglycemia SCH (22:22)
[2022-08-31 22:24] LABS: Magnesium 2.1 mg/dl (1.7-2.4)
--- NOTE | 2022-08-31 22:34 | History & Physical Report ---
Date of Service August 31, 2022 Assessment & Plan (1) ST elevation myocardial infarction (STEMI): Plan: 57-year-old male presented chest pain and found to have ST elevated CT. ST elevated CT S/p cardiac cath mid LAD 99% occlusion, ostial 99 % occlusion Status post drug-eluting stent to mid and early distal LAD. Severely diseased second diagonal ostium was dilated Mild to moderate distal disease in the circumflex OM branch as per cath reports Post cath management as per cardiology Close monitoring ICU Online Merchant started on aspirin and Brilinta, Lipitor and metoprolol tartrate. Follow labs and echo Tobacco abuse Needs counseling (2) Current smoker: Admission and Anticipated Discharge Date Admission Date: August 31, 2022 History of Present Illness Chief Complaint: Acute CT Primary Care Provider: JUSTIN PCP 57-year-old male past medical significant for back pain, knee pain says he takes ibuprofen on a regular basis came with chest pain and found to have acute ST elevated CT. Status postcardiac cath and stent to LAD. Patient states around 4 PM he developed severe chest pain radiating to his back associated with nausea and vomiting and sweating. He tried to call 911 but his phone did not work. At 4:30 PM he called his she came and called EMS and was brought in here. As per cardiology notes initial EKG is with no acute ST elevations but on repeat EKGs as he was having increased pains showed ST elevations in anterolateral leads. Patient says since last several weeks he is feeling very weak and fatigued easily and short of breath on exertion. He has a knee pain pains. So he cannot climb steps. Says he smokes 1 pack of cigarettes daily. Currently he has mild soreness in the chest. Denies any headache. No blurred visions or earache runny nose or sore throat. No cough. Afebrile. No abdominal pain. Normal bowel and bladder movements. Past medical history as mentioned above Past surgical history knee surgeries. Allergies Allergy/AdvReac Type Severity Reaction Status Date / Time Penicillins Allergy Unknown Verified 08/31/22 21:12 Home Medications Medication Instructions Recorded Confirmed Type No Known Home Medications 08/31/22 08/31/22 History Past Med/Surg History Medical History Chronic back pain Surgical History S/P ACL repair Family History Other Coronary heart disease Heart disease Hypertension Lung disease Social History Smoking Status: Current every day smoker Tobacco Type: Cigarettes Cigarettes Per Day: 20; Do You Dip or Chew Tobacco: No; Hx Alcohol Use: No Hx Substance Use: No Preferred Language: Malian Communication Ability: Effective Vehicle Glass Technician Required: No Beliefs That Will Affect Care: None Current Living Situation: Spouse Feels Safe at Home: Yes Assistive Devices: None Review of Systems Review of Systems: All systems reviewed & are unremarkable except as noted in Subjective Physical Exam Physical Exam: General- Not in distress Head- atraumatic Eyes- PERRLA ENT- oropharynx clear Neck- supple, no JVD Lungs- clear to auscultation and percussion Heart- regular rhythm; no murmur, no gallop, no rub appreciated Abdomen- normal bowel sounds, soft, nontender, no distension Extremities- no pretibial edema, no eryhtema seen Neuro- alert, oriented x 3; no facial palsy; no dysarthria; Non focal. Skin- warm & dry Results & Data Results & Data Vital Signs (Past 12 Hours) Vital Signs Temp Pulse Pulse Resp BP BP Pulse Ox 08/31/22 21:45 36.6 C 82 18 149/90 H 98 08/31/22 20:24 36.6 C 82 18 149/90 H 98 08/31/22 18:40 88 16 94 08/31/22 18:30 84 14 99 08/31/22 18:29 124/87 08/31/22 18:29 81 17 08/31/22 18:20 70 15 97 08/31/22 18:20 148/91 H 08/31/22 18:10 68 16 100 08/31/22 18:00 70 11 L 94 08/31/22 18:00 134/85 08/31/22 17:50 71 19 98 08/31/22 17:44 72 12 94 08/31/22 17:52 60 08/31/22 17:46 99 08/31/22 17:20 99 08/31/22 17:20 36.5 C 61 15 142/97 H 99 O2 Del Method O2 Flow Rate 08/31/22 21:45 Room Air 08/31/22 20:24 Room Air 08/31/22 18:40 Room Air 08/31/22 18:30 08/31/22 18:29 08/31/22 18:29 08/31/22 18:20 08/31/22 18:20 08/31/22 18:10 08/31/22 18:00 08/31/22 18:00 08/31/22 17:50 08/31/22 17:44 08/31/22 17:52 08/31/22 17:46 Room Air 08/31/22 17:20 Room Air 0 08/31/22 17:20 Room Air Diagnostic Findings Laboratory Results WBC 19.99 K/ul (4.8-10.8) H 08/31/22 21:32 RBC 5.00 M/uL (4.70-6.10) 08/31/22 21:32 Hgb 15.6 g/dl (14.0-18.0) 08/31/22 21:32 Hct 46.1 % (42.0-52.0) 08/31/22 21:32 MCV 92.2 fL (80.0-100.0) 08/31/22 21:32 MCH 31.2 pg (25.0-34.0) 08/31/22 21:32 MCHC 33.8 g/dL (32.0-36.0) 08/31/22 21:32 RDW Std Deviation 44.4 fL (36.4-46.3) 08/31/22 21:32 RDW Coeff of Brayden 13.1 % (11.5-14.5) 08/31/22 21:32 Plt Count 371 K/uL (130-400) 08/31/22 21:32 MPV 9.4 fL (9.4-12.4) 08/31/22 21:32 Immature Gran % (Auto) 0.5 % 08/31/22 21:32 Neut % (Auto) 81.5 % 08/31/22 21:32 Lymph % (Auto) 13.4 % 08/31/22 21:32 Vermilion % (Auto) 4.2 % 08/31/22 21:32 Eos % (Auto) 0.1 % 08/31/22 21:32 Baso % (Auto) 0.3 % 08/31/22 21:32 Neut # (Auto) 16.30 K/uL (1.40-6.50) H 08/31/22 21:32 Lymph # (Auto) 2.68 K/uL (1.2-3.4) 08/31/22 21:32 [place] # (Auto) 0.84 K/uL (0.11-0.59) H 08/31/22 21:32 Eos # (Auto) 0.01 K/uL (0-0.50) 08/31/22 21:32 Baso # (Auto) 0.06 K/uL (0-0.2) 08/31/22 21:32 Immature Gran # (Auto) 0.10 K/uL (0.01-0.20) 08/31/22 21:32 PT 10.5 Seconds (9.0-12.0) 08/31/22 17:51 INR 1.0 (0.9-1.1) 08/31/22 17:51 APTT 22.9 Seconds (21.0-31.0) 08/31/22 17:51 PTT Ratio 0.8 08/31/22 17:51 Activ Coag Time Kaolin 221 SECONDS (94-140) H 08/31/22 20:03 Sodium 140 mmol/L (136-145) 08/31/22 17:51 Potassium 3.2 mmol/L (3.5-5.1) L 08/31/22 17:51 Chloride 105 mmol/L (98-107) 08/31/22 17:51 Carbon Dioxide 23 mmol/L (21-32) 08/31/22 17:51 Anion Gap 12 (3-11) H 08/31/22 17:51 BUN 17 mg/dl (6-23) 08/31/22 17:51 Creatinine 0.99 mg/dl (0.6-1.4) 08/31/22 17:51 Est Cr Clr Drug Dosing 99.1 ml/min 08/31/22 17:51 Est GFR ( Amer) 98.3 ml/min 08/31/22 17:51 Est GFR (Non-Af Amer) 84.8 ml/min 08/31/22 17:51 BUN/Creatinine Ratio 17.2 (10-20) 08/31/22 17:51 Glucose 133 mg/dl (70-99(Fasting)) H 08/31/22 17:51 POC Glucose 151 mg/dl (70-99) H 08/31/22 21:59 Estimat Average Glucose 120 mg/dl 08/31/22 21:32 Hemoglobin A1c 5.8 % (4.5-5.6) H 08/31/22 21:32 Calcium 9.6 mg/dl (8.6-10.3) 08/31/22 17:51 Magnesium 2.1 mg/dl (1.7-2.4) 08/31/22 21:32 Total Bilirubin 0.4 mg/dl (0.2-1.0) 08/31/22 17:51 AST 17 U/L (13-39) 08/31/22 17:51 ALT 23 U/L (7-52) 08/31/22 17:51 Alkaline Phosphatase 84 U/L (34-104) 08/31/22 17:51 Troponin I High Sens 28.8 pg/ml (0-20) H 08/31/22 17:51 Total Protein 7.5 gm/dl (6.0-8.3) 08/31/22 17:51 Albumin 4.6 gm/dl (3.4-5.0) 08/31/22 17:51 Globulin 2.9 gm/dl (2.5-4.0) 08/31/22 17:51 Albumin/Globulin Ratio 1.6 (0.9-2) 08/31/22 17:51 LDL Cholesterol Direct 163 mg/dl 08/31/22 21:32 Lipase 5 U/L (11-82) L 08/31/22 17:51 TSH 1.978 uIu/ml (0.300-4.500) 08/31/22 21:32 Nasal Screen MRSA (PCR) Negative (Negative) 08/31/22 20:40 SARS-CoV-2, RNA, NAAT NEGATIVE (NEGATIVE) 08/31/22 18:38 ECG Additional Comments: ECG normal sinus rhythm with sinus arrhythmia at a rate of 70 Code Status & VTE Plan VTE Prophylaxis Plan VTE Prophylaxis will be ordered: Yes
[2022-09-01] MEDS: EPTIFIBATIDE 75 MG/100 ML VIAL IV SCH (03:38)
[2022-09-01 06:39] LABS: Basophils # (auto) 0.07 K/uL (0-0.2); Basophils % (auto) 0.4 %; Eosinophils % (auto) 0.6 %; Hematocrit (blood only) 41.9 % (42.0-52.0); Hemoglobin 14.3 g/dl (14.0-18.0); Immature Granulocytes # (auto) 0.06 K/uL (0.01-0.20); Immature Granulocytes % (auto) 0.4 %; Lymphocytes # (auto) 3.41 K/uL (1.2-3.4); Lymphocytes % (auto) 20.5 %; Mean Corpuscular Hemoglobin 31.2 pg (25.0-34.0); Mean Corpuscular Hgb Conc 34.1 g/dL (32.0-36.0); Mean Corpuscular Volume 91.3 fL (80.0-100.0); Mean Platelet Volume 9.7 fL (9.4-12.4); Monocytes # (auto) 1.26 K/uL (0.11-0.59); Monocytes % (auto) 7.6 %; Neutrophils # (auto) 11.74 K/uL (1.40-6.50); Neutrophils % (auto) 70.5 %; Platelet Count 358 K/uL (130-400); Red Blood Count 4.59 M/uL (4.70-6.10); White Blood Count 16.64 K/ul (4.8-10.8)
[2022-09-01 06:52] LABS: Potassium 4.1 mmol/L (3.5-5.1)
[2022-09-01 06:58] LABS: BUN Creatinine Ratio 20.5 (10-20); Creatinine Clr Calc Pharmacy 125.3 ml/min; Est GFR (Non-African American) 100.9 ml/min
[2022-09-01] MEDS: ICU Protocol for HYPERglycemia SCH ×3 (07:23→17:47)
[2022-09-01] MEDS: ATORVASTATIN 40 MG TAB PO SCH (08:14)
[2022-09-01] MEDS: ASPIRIN 81 MG ECTAB PO SCH (08:14)
[2022-09-01] MEDS: METOPROLOL TARTRATE 25 MG TAB PO SCH ×2 (08:14→20:36)
[2022-09-01] MEDS: TICAGRELOR 90 MG TAB PO SCH ×2 (08:15→20:36)
--- NOTE | 2022-09-01 10:58 | XRay Report ---
XR chest 1V portable HISTORY: chest pain active smoker COMPARISON: None. FINDINGS: No pneumothorax. No pleural effusions. No focal lung consolidations to suggest a pneumonia. No evidence for pulmonary edema. There is a 3.3 x 1.6 cm calcified density within the right lung bas e. This favors a calcified granuloma. A calcified pleural plaque could also have a similar appearance . Otherwise, the lungs are clear. The heart is normal in size. No acute fractures identified. IMPRESSION: 1. No acute process within the chest. 2. There is a 3.3 x 1.6 cm calcified density within the right lung base. This favors a calcified gran uloma. A calcified pleural plaque could also have a similar appearance. ACT 112: Negative or not required by law. Electronically signed by: George Villegas M.D. 09/01/2022 10:57 AM
--- NOTE | 2022-09-01 11:13 | Electrocardiogram Report ---
Test Reason : Blood Pressure : / mmHG Vent. Rate : 067 BPM Atrial Rate : 067 BPM P-R Int : 198 ms QRS Dur : 074 ms QT Int : 410 ms P-R-T Axes : 042 028 044 degrees QTc Int : 433 ms Normal sinus rhythm ST elevation in Anterior leads , possible injury current (acute [place]) No previous ECGs available Confirmed by Olaf De Guzman ([id number]) on 09/01/2022 11:13:17 AM Referred By: REFERRED SELF Confirmed By:Olaf De Guzman
--- NOTE | 2022-09-01 11:15 | Electrocardiogram Report ---
Test Reason : Blood Pressure : / mmHG Vent. Rate : 080 BPM Atrial Rate : 080 BPM P-R Int : 188 ms QRS Dur : 080 ms QT Int : 374 ms P-R-T Axes : 076 018 062 degrees QTc Int : 431 ms Normal sinus rhythm ST elevation in Anterior leads ,possible injury current Peaked T waves(consider ischemia,hyperkalemia,etc.) When compared with ECG of 31-AUG-2022 17:37, T waves more peaked Confirmed by Olaf De Guzman ([id number]) on 09/01/2022 11:15:23 AM Referred By: REFERRED SELF Confirmed By:Olaf De Guzman
--- NOTE | 2022-09-01 11:17 | Electrocardiogram Report ---
Test Reason : Blood Pressure : / mmHG Vent. Rate : 075 BPM Atrial Rate : 075 BPM P-R Int : 208 ms QRS Dur : 078 ms QT Int : 384 ms P-R-T Axes : 056 019 071 degrees QTc Int : 428 ms Normal sinus rhythm Minor ST elevation in Anterior leads Normal ECG When compared with ECG of 31-AUG-2022 18:14, Peaked T waves no longer present ST elevation in Anterior leads less suggestive of injury current Confirmed by Olaf De Guzman ([id number]) on 09/01/2022 11:16:59 AM Referred By: REFERRED SELF Confirmed By:Olaf De Guzman
--- NOTE | 2022-09-01 11:18 | Electrocardiogram Report ---
Test Reason : Blood Pressure : / mmHG Vent. Rate : 073 BPM Atrial Rate : 073 BPM P-R Int : 210 ms QRS Dur : 090 ms QT Int : 366 ms P-R-T Axes : 076 026 061 degrees QTc Int : 403 ms Sinus rhythm with 1st degree A-V block Diffuse Minor Nonspecific T wave abnormality Abnormal ECG When compared with ECG of 31-AUG-2022 18:19, Nonspecific T wave abnormality now evident in multiple leads ST elevation in Anterior leads no longer present Confirmed by Olaf De Guzman ([id number]) on 09/01/2022 11:17:38 AM Referred By: REFERRED SELF Confirmed By:Olaf De Guzman
--- NOTE | 2022-09-01 11:18 | Electrocardiogram Report ---
Test Reason : Blood Pressure : / mmHG Vent. Rate : 068 BPM Atrial Rate : 068 BPM P-R Int : 198 ms QRS Dur : 086 ms QT Int : 426 ms P-R-T Axes : 070 025 068 degrees QTc Int : 452 ms Normal sinus rhythm T wave abnormality, consider anterior ischemia (or infarct evolution) Abnormal ECG When compared with ECG of 31-AUG-2022 21:49, T wave inversion now evident in Anterior leads Confirmed by Olaf De Guzman ([id number]) on 09/01/2022 11:18:21 AM Referred By: REFERRED SELF Confirmed By:Olaf De Guzman
--- NOTE | 2022-09-01 11:37 | Hospitalist Progress Note ---
Date of Service September 01, 2022 Assessment & Plan (1) ST elevation myocardial infarction (STEMI): Plan: 57-year-old male presented chest pain and found to have ST elevated CT. ST elevated CT S/p cardiac cath mid LAD 99% occlusion, ostial 99 % occlusion Status post drug-eluting stent to mid and early distal LAD. Severely diseased second diagonal ostium was dilated Mild to moderate distal disease in the circumflex OM branch as per cath reports Post cath management as per cardiology Supervisor Dumping started on aspirin and Brilinta, Lipitor and metoprolol tartrate. 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 Tobacco abuse Needs counseling (2) Current smoker: Admission and Anticipated Discharge Date Admission Date: August 31, 2022 Subjective 09/01/2022 The patient was seen and examined in ICU He is a status post YANNI in LAD yesterday Remains free for any symptoms and does not have any arrhythmias No chest pain or palpitation, no abdominal pain nausea and vomiting Review of Systems Review of Systems: All systems reviewed and are unremarkable except as noted below Physical Exam Physical Exam: Lying in bed comfortably Constitutional: well developed, well nourished and + obese; not ill appearing Eyes: PERRL, conjunctivae normal, anicteric sclerae ENMT: external ear and nose normal, oropharynx normal Neck: trachea midline, no thyromegaly Respiratory: no respiratory distress Auscultation: lungs clear to auscultation bilaterally Cardiovascular: Rate/Rhythm: regular rate and regular rhythm; not tachycardic Heart Sounds: normal S1 and normal S2; no murmur Extremities: no edema Gastrointestinal (Abdomen): Inspection/Auscultation: normal bowel sounds; abdomen not distended Percussion/Palpation: abdomen soft; abdomen nontender Musculoskeletal: No acute arthritis involving any of the joint Neurologic: Alert, awake and oriented x3. No focal sensory or no motor deficit appreciated Lymphatic: no cervical or axillary lymphadenopathy Results & Data Results & Data Vital Signs (Past 12 Hours) Vital Signs Temp Pulse Resp BP Pulse Ox O2 Del Method 09/01/22 07:00 75 12 97 Room Air 09/01/22 07:00 142/95 H 09/01/22 07:07 79 09/01/22 04:00 82 15 124/79 97 09/01/22 03:00 74 11 L 121/82 97 09/01/22 02:30 76 16 132/81 98 09/01/22 02:00 82 17 151/78 H 96 09/01/22 01:30 86 14 136/86 96 09/01/22 01:00 75 14 133/70 98 09/01/22 00:31 77 18 117/69 98 09/01/22 00:00 70 20 145/97 H 97 09/01/22 04:08 36.5 C Laboratory Results Short CBC 08/31/22 08/31/22 09/01/22 Range/Units 17:51 21:32 04:44 WBC 13.64 H 19.99 H 16.64 H (4.8-10.8) K/ul Hgb 15.5 15.6 14.3 (14.0-18.0) g/dl Hct 45.3 46.1 41.9 L (42.0-52.0) % Plt Count 368 371 358 (130-400) K/uL BMP 08/31/22 09/01/22 17:51 04:39 Sodium 140 139 Potassium 3.2 L 4.1 D Chloride 105 107 Carbon Dioxide 23 25 BUN 17 16 Creatinine 0.99 0.78 Glucose 133 H 103 H Calcium 9.6 9.0 Liver Function 08/31/22 Range/Units 17:51 Total Bilirubin 0.4 (0.2-1.0) mg/dl AST 17 (13-39) U/L ALT 23 (7-52) U/L Alkaline Phosphatase 84 (34-104) U/L Albumin 4.6 (3.4-5.0) gm/dl Medications Administered Current Inpatient Medications Acetaminophen (Acetaminophen 325 Mg Tab) 650 mg PO Q4H PRN PRN Reason: MILD Pain (Scale 1,2,3) Stop: 09/30/22 20:14 Aspirin (Aspirin 81 Mg Ectab) [facility] [place] Stop: 10/01/22 08:59 Last Admin: 09/01/22 08:14 Dose: 81 mg Atorvastatin Calcium (Atorvastatin 40 Mg Tab) 40 mg PO QAM [facility] Stop: 10/01/22 08:59 Last Admin: 09/01/22 08:14 Dose: 40 mg Fluticasone/Vilanterol (Fluticasone/Vilanterol 100/25mcg 14 Puffs/Inhaler) 1 puffs INH DAILY [facility] Stop: 10/01/22 11:29 Metoprolol Tartrate (Metoprolol Tartrate 25 Mg Tab) 25 mg PO BID [facility] Stop: 09/30/22 20:59 Last Admin: 09/01/22 08:14 Dose: 25 mg Miscellaneous (Icu Protocol For Hyperglycemia) 1 each N/A ACHS [facility] Stop: 09/02/22 20:59 Last Admin: 09/01/22 07:23 Dose: 1 each Ondansetron HCl (Ondansetron Inj 2 Mg/Ml 2 Ml Vial) 4 mg IV Q6H PRN PRN Reason: Nausea And Vomiting Stop: 09/30/22 20:14 Ticagrelor (Ticagrelor 90 Mg Tab) 90 mg PO BID [facility] Stop: 10/01/22 08:59 Last Admin: 09/01/22 08:15 Dose: 90 mg
--- NOTE | 2022-09-01 12:58 | Critical Care Progress Note ---
Date of Service September 01, 2022 Assessment & Plan (1) Current smoker: (2) ST elevation myocardial infarction (STEMI): (3) Chest pain: Admission and Anticipated Discharge Date Admission Date: August 31, 2022 Supervising Physician Co-Signing Physician Notes The patient had an ST segment elevation HI. He had quite a low significant elevation in his troponin up to 8276.3. He went to the [facility] and underwent a single drug-eluting stent in his LAD with complete resolution of his symptoms. He was admitted to the intensive care unit postprocedure for observation. Overnight he did very well and only had some minimal PVCs without any ventricular arrhythmias. He is resting comfortably on room air. 1. Neuropsych: The patient is self-employed and has no insurance. We fortunately were able to speak with case management during rounds today. She is going to try to help him get insurance and see weight may be if he qualifies for Medicaid. She will also be helping give him a card for 30-day supply of Brilinta. Hopefully that will bring him past the critical stage where he needs dual platelet therapy. Ideally it should be much longer. He certainly should be able to afford enteric-coated aspirin. Ideally he should also be on atorvastatin and metoprolol. In speaking with cardiology they will decide whether or not he needs an ZANDRA or an ARB after assessing the echocardiogram but we may need to really be minimalist with this patient with regards to compliance and medication expense. 2. Cardiac: The patient's a follow-up EKG shows improvement in his ST segments but is now evolving to lateral T wave inversions. We will follow-up his troponin and make sure that it comes down tomorrow. The echocardiogram was done and the final report is pending. Metoprolol was added as was atorvastatin. Again is above the discussion with dual platelet therapy. I am also concerned about the report of claudication. Some of these medications should help with that as well. But he should have an ARSLAN and vascular evaluation as an outpatient. 3. Pulmonary: The patient is wheezing consistent with a smoking use disorder. He likely has some COPD. He is wheezing on exam. We had a discussion about smoking cessation though I do not think that that is a likely possibility for him. We are prescribing a Breo Ellipta inhaler for a long-acting steroid as well as long-acting beta agonist. Is could be escalated to including a long- acting muscarinic if necessary. He has a short acting bronchodilator at home. He is not on a nicotine patch at this time. I obtained a chest x-ray because of the wheezing and his smoking history and his lack of exposure to medical care. There is a calcified lesion on his right lung which may represent a pleural plaque. I have ordered a CT scan to have a better definition of that. Serial evaluation would be warranted if he pursues medical care. 4. GI. He is on a cardiac diet. The right after the [facility] by his gave him a facility cheese steak sub so my hope for a cardiac prudent diet is very low. He will have to see if his chronic nausea is improved with the correction of his ongoing angina. 5. Renal: No active issues. 6. ID: No active issues. 7. Infectious disease: No clear active issues.. I requested he did have an elevated white count which could be stress in his come down from nearly 20 down to 16.6. Chest x-ray was also ordered to see if there was any infiltrate and I was not consistent with pneumonia. We will just check a urinalysis to be complete. 8. Endocrine: The patient has an elevated hemoglobin A1c of 5.8 which is marginal so again if he does pursue an outpatient physician relationship they can explore some prediabetes. His TSH was 1.978 which is normal. In speaking with the cardiology he is able to leave the intensive care unit. Cardiology is hoping to keep him until tomorrow though the patient adamantly wants to go home and hopefully he will be agreeable to staying 1 more night. Subjective The patient is feeling a lot better now. He was having weeks of nausea and some chest discomfort. He also reports symptoms of referable to claudication for some time. He has had some general weakness and lethargy. Then with moving a refrigerator he had a much worse episode of chest pain radiating to his jaw and arms and presented to the hospital. Today he is feeling much better. That chest discomfort jaw and arm pain are gone. Some of that chronic symptoms also have resolved. He has not been out of bed to test his claudication. But he has no headache or change in vision. No chest pain or palpitations no shortness of breath nausea vomiting cough or phlegm production. No swelling of his ankles or pain in his shins. Physical Exam Physical Exam: He is awake alert and interactive. He is neurologically intact nonfocal. E xtraocular muscles intact pupils equal round reactive. Heart is regular rate and rhythm without murmurs rubs or gallops abdomen is soft nontender without paraspinal megaly extremities without clubbing cyanosis or edema. Lungs do reveal wheezing in all quadrants but no obvious consolidation. There is no rashes or arthritis. Results & Data Results & Data Vital Signs (Past 12 Hours) Vital Signs Temp Pulse Resp BP Pulse Ox O2 Del Method 09/01/22 07:00 75 12 97 Room Air 09/01/22 07:00 142/95 H 09/01/22 07:07 79 09/01/22 04:00 82 15 124/79 97 09/01/22 03:00 74 11 L 121/82 97 09/01/22 02:30 76 16 132/81 98 09/01/22 02:00 82 17 151/78 H 96 09/01/22 01:30 86 14 136/86 96 09/01/22 01:00 75 14 133/70 98 09/01/22 04:08 36.5 C Laboratory Results Laboratory Results WBC 16.64 K/ul (4.8-10.8) H 09/01/22 04:44 RBC 4.59 M/uL (4.70-6.10) L 09/01/22 04:44 Hgb 14.3 g/dl (14.0-18.0) 09/01/22 04:44 Hct 41.9 % (42.0-52.0) L 09/01/22 04:44 MCV 91.3 fL (80.0-100.0) 09/01/22 04:44 MCH 31.2 pg (25.0-34.0) 09/01/22 04:44 MCHC 34.1 g/dL (32.0-36.0) 09/01/22 04:44 RDW Std Deviation 43.0 fL (36.4-46.3) 09/01/22 04:44 RDW Coeff of Brayden 13.0 % (11.5-14.5) 09/01/22 04:44 Plt Count 358 K/uL (130-400) 09/01/22 04:44 MPV 9.7 fL (9.4-12.4) 09/01/22 04:44 Immature Gran % (Auto) 0.4 % 09/01/22 04:44 Neut % (Auto) 70.5 % 09/01/22 04:44 Lymph % (Auto) 20.5 % 09/01/22 04:44 Bremer % (Auto) 7.6 % 09/01/22 04:44 Eos % (Auto) 0.6 % 09/01/22 04:44 Baso % (Auto) 0.4 % 09/01/22 04:44 Neut # (Auto) 11.74 K/uL (1.40-6.50) H 09/01/22 04:44 Lymph # (Auto) 3.41 K/uL (1.2-3.4) H 09/01/22 04:44 Bremer # (Auto) 1.26 K/uL (0.11-0.59) H 09/01/22 04:44 Eos # (Auto) 0.10 K/uL (0-0.50) 09/01/22 04:44 Baso # (Auto) 0.07 K/uL (0-0.2) 09/01/22 04:44 Immature Gran # (Auto) 0.06 K/uL (0.01-0.20) 09/01/22 04:44 PT 10.5 Seconds (9.0-12.0) 08/31/22 17:51 INR 1.0 (0.9-1.1) 08/31/22 17:51 APTT 22.9 Seconds (21.0-31.0) 08/31/22 17:51 PTT Ratio 0.8 08/31/22 17:51 Activ Coag Time Kaolin 221 SECONDS (94-140) H 08/31/22 20:03 Sodium 139 mmol/L (136-145) 09/01/22 04:39 Potassium 4.1 mmol/L (3.5-5.1) D 09/01/22 04:39 Chloride 107 mmol/L (98-107) 09/01/22 04:39 Carbon Dioxide 25 mmol/L (21-32) 09/01/22 04:39 Anion Gap 7 (3-11) 09/01/22 04:39 BUN 16 mg/dl (6-23) 09/01/22 04:39 Creatinine 0.78 mg/dl (0.6-1.4) 09/01/22 04:39 Est Cr Clr Drug Dosing 125.3 ml/min 09/01/22 04:39 Est GFR ( Amer) 117.0 ml/min 09/01/22 04:39 Est GFR (Non-Af Amer) 100.9 ml/min 09/01/22 04:39 BUN/Creatinine Ratio 20.5 (10-20) H 09/01/22 04:39 Glucose 103 mg/dl (70-99(Fasting)) H 09/01/22 04:39 POC Glucose 110 mg/dl (70-99) H 09/01/22 11:14 Estimat Average Glucose 120 mg/dl 08/31/22 21:32 Hemoglobin A1c 5.8 % (4.5-5.6) H 08/31/22 21:32 Calcium 9.0 mg/dl (8.6-10.3) 09/01/22 04:39 Magnesium 2.0 mg/dl (1.7-2.4) 09/01/22 04:39 Total Bilirubin 0.4 mg/dl (0.2-1.0) 08/31/22 17:51 AST 17 U/L (13-39) 08/31/22 17:51 ALT 23 U/L (7-52) 08/31/22 17:51 Alkaline Phosphatase 84 U/L (34-104) 08/31/22 17:51 Troponin I High Sens 8140.2 pg/ml (0-20) H* 09/01/22 09:39 Total Protein 7.5 gm/dl (6.0-8.3) 08/31/22 17:51 Albumin 4.6 gm/dl (3.4-5.0) 08/31/22 17:51 Globulin 2.9 gm/dl (2.5-4.0) 08/31/22 17:51 Albumin/Globulin Ratio 1.6 (0.9-2) 08/31/22 17:51 LDL Cholesterol Direct 163 mg/dl 08/31/22 21:32 Lipase 5 U/L (11-82) L 08/31/22 17:51 TSH 1.978 uIu/ml (0.300-4.500) 08/31/22 21:32 Nasal Screen MRSA (PCR) Negative (Negative) 08/31/22 20:40 SARS-CoV-2, RNA, NAAT NEGATIVE (NEGATIVE) 08/31/22 18:38 Impressions Chest X-Ray 09/01/22 09:23 XR chest 1V portable HISTORY: chest pain active smoker COMPARISON: None. FINDINGS: No pneumothorax. No pleural effusions. No focal lung consolidations to suggest a pneumonia. No evidence for pulmonary edema. There is a 3.3 x 1.6 cm calcified density within the right lung base. This favors a calcified granuloma. A calcified pleural plaque could also have a similar appearance. Otherwise, the lungs are clear. The heart is normal in size. No acute fractures identified. IMPRESSION: 1. No acute process within the chest. 2. There is a 3.3 x 1.6 cm calcified density within the right lung base. This favors a calcified granuloma. A calcified pleural plaque could also have a similar appearance. ACT 112: Negative or not required by law. Electronically signed by: George Villegas M.D. 09/01/2022 10:57 AM Medications Administered Current Inpatient Medications Acetaminophen (Acetaminophen 325 Mg Tab) 650 mg PO Q4H PRN PRN Reason: MILD Pain (Scale 1,2,3) Stop: 09/30/22 20:14 Aspirin (Aspirin 81 Mg Ectab) 81 mg PO QAM [facility] Stop: 10/01/22 08:59 Last Admin: 09/01/22 08:14 Dose: 81 mg Atorvastatin Calcium (Atorvastatin 40 Mg Tab) 40 mg PO QAM [facility] Stop: 10/01/22 08:59 Last Admin: 09/01/22 08:14 Dose: 40 mg Fluticasone/Vilanterol (Fluticasone/Vilanterol 100/25mcg 14 Puffs/Inhaler) 1 puffs INH DAILY [facility] Stop: 10/01/22 11:29 Metoprolol Tartrate (Metoprolol Tartrate 25 Mg Tab) 25 mg PO BID [facility] Stop: 09/30/22 20:59 Last Admin: 09/01/22 08:14 Dose: 25 mg Miscellaneous (Icu Protocol For Hyperglycemia) 1 each N/A ACHS [facility] Stop: 09/02/22 20:59 Last Admin: 09/01/22 07:23 Dose: 1 each Ondansetron HCl (Ondansetron Inj 2 Mg/Ml 2 Ml Vial) 4 mg IV Q6H PRN PRN Reason: Nausea And Vomiting Stop: 09/30/22 20:14 Ticagrelor (Ticagrelor 90 Mg Tab) 90 mg PO BID [facility] Stop: 10/01/22 08:59 Last Admin: 09/01/22 08:15 Dose: 90 mg Coding Level of Care Code 22614 SUB INP/OBS CARE 3/50MIN History Expanded Problem Focused Exam Expanded Problem Focused Diagnoses Current smoker F17.200 ST elevation myocardial infarction (STEMI) I21.3 Chest pain R07.9 Time Spent (min) 45
[2022-09-01] MEDS ORDERED: OPTIRAY 320 100ml IV ONE (13:52)
[2022-09-01] MEDS: FLUTICASONE/VILANTEROL 100/25MCG 14 PUFFS/INHALER INH SCH (14:04)
--- NOTE | 2022-09-01 15:26 | CT Scan Report ---
CHEST CT WITH CONTRAST CT DOSE: 862.19 mGy.cm HISTORY: Abnormal chest x-ray. evaluate pleural plaque vs pulmonary lesions TECHNIQUE: Multiaxial CT images of the chest were performed following the intravenous administration of contrast. A dose lowering technique was utilized adhering to the principles of ALARA. COMPARISON: Chest 09/01/2022. FINDINGS: There is again noted a 3.1 x 1.9 x 1.5 cm completely calcified nodule within the right lowe r lobe. Therefore, this is consistent with a calcified granuloma. The central airways are patent. Mil d emphysema. No pneumothorax. No pleural effusions. There is a possible 6 mm groundglass nodule withi n the left upper lobe on image 94. Additional punctate calcified granulomas within the right upper lo be on image 96. No focal lung consolidations to suggest pneumonia. No evidence for pulmonary edema. N o suspicious lytic or blastic osseous lesions. Limited views of the upper abdomen demonstrate a linda l liver and adrenal glands. There are few punctate calcified granulomas within the spleen. The thyroi d gland enhances normally. Normal esophagus. No pericardial effusion. The artery is normal in size. M oderate to severe coronary artery calcifications are noted. Normal caliber thoracic aorta. The centra l pulmonary arteries are patent. Multiple calcified right hilar lymph nodes. Multiple additional scat tered mediastinal and bilateral hilar lymph nodes are subcentimeter in short axis diameter. Therefore , these do not meet CT criteria for pathologic involvement. IMPRESSION: 1. Confirmation of the 3.1 x 1.9 x 1.5 cm calcified granuloma within the right lower lobe. This is co nsidered to be benign. 2. A possible 6 mm groundglass nodule within the left upper lobe. Six-month to one year chest CT foll ow-up recommended to ensure stability. 3. Mild emphysema. 4. Moderate to severe coronary artery calcifications. ACT 112: Positive. There are findings on this exam that require communication between the performing entity and the patient following Patient Test Result Information Act ([place] Act 112) guidelines. Electronically signed by: George Villegas M.D. 09/01/2022 3:25 PM
[2022-09-01 15:32] LABS: Appearance Urine Clear (Clear); Bilirubin Urine Negative (Negative); Blood Urine Negative (Negative); Color Urine Yellow; Glucose Urine UA Negative (Negative); Ketones Urine Negative (Negative); Leukocyte Esterase Urine Negative (Negative); Nitrite Urine Negative (Negative); Protein Urine Negative (Negative); Specific Gravity Urine 1.019 (1.000-1.030); Urobilinogen Urine Negative (Negative)
--- NOTE | 2022-09-01 17:25 | Cardiology Progress Note ---
Date of Service September 01, 2022 Assessment & Plan (1) ST elevation myocardial infarction (STEMI): Plan: Successful PCI of the LAD. He will remain on dual antiplatelet therapy with aspirin 81 mg daily and Brilinta 90 mg p.o. twice daily. Working on financial assistance for medications. Guideline directed medical therapy with beta- benji, high intensity statin, plus or minus ZANDRA inhibitor/ARB. I will review the echocardiogram and make additional recommendations as indicated. Referral for outpatient cardiac rehab at discharge. Anticipate patient will be ready for discharge tomorrow afternoon. (2) Atherogenic dyslipidemia: Plan: Patient is high risk. High intensity statin therapy with a atorvastatin 40 mg daily. Untreated LDL was 163 making the target LDL 81 mg/dL. (3) Benign essential hypertension: Plan: Blood pressure is acceptable. Continue current regimen. We will make adjustments pending results of the echocardiogram. Admission and Anticipated Discharge Date Admission Date: August 31, 2022 Subjective 57-year-old gentleman who presented last night with acute myocardial infarction and underwent stenting of the LAD. Good angiographic results. No further chest pain or shortness of breath. He feels "much better" according to him. He states he has not felt this good in months. He does have no pain at the radial access site. He has a number of concerns predominantly associated with finances. 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 We spent a good bit of time discussing the extent of his myocardial infarction, the importance of the dual antiplatelet therapy to maintain stent patency and reduce likelihood of acute stent thrombosis/myocardial infarction/. I was able to give him free samples of Brilinta to take for the next 2 weeks. In addition, he is applying for financial assistance with protracted Brilinta use and ultimately after 30 days if necessary we could convert him to Plavix therapy. I also encouraged him to participate in cardiac rehab to reduce likelihood of recurrent events and improve his quality of life. One of his family members is present an d participates in all of these efforts for her own health and has encouraged him to also embrace the treatment plan. Although he would like to go home at this time he understands that my recommendation is for him to stay until tomorrow at minimum. He is agreeable at this time. Review of Systems Review of Systems: Negative except as per HPI Physical Exam Constitutional: WD/WN, vitals as above Neck: No JVD Respiratory: Clear to auscultation bilaterally. No wheezing, rhonchi, or rales. Diminished air movement. Cardiovascular: Regular rate and rhythm. S4 gallop. I do not appreciate any murmurs today. No edema. Right radial access site is clean dry and intact. Good distal perfusion. Musculoskeletal: no cyanosis or clubbing, extremities motor strength 5/5 Neurologic: Cognition is intact. Speech is fluent. No focal deficits. Improved mood. Psychiatric: A+Ox3, euthymic affect Results & Data Vital Signs (Past 12 Hours) Vital Signs Pulse Resp BP Pulse Ox O2 Del Method 09/01/22 15:57 71 09/01/22 15:00 80 19 98 Room Air 09/01/22 15:00 138/104 H 09/01/22 14:04 126/86 09/01/22 14:04 87 20 95 Room Air 09/01/22 14:03 79 20 96 Room Air 09/01/22 13:01 135/88 09/01/22 13:01 72 11 L 09/01/22 13:00 85 23 98 Room Air 09/01/22 12:00 95 H 20 96 Room Air 09/01/22 12:00 129/76 09/01/22 11:00 71 12 97 Room Air 09/01/22 11:00 135/94 09/01/22 10:00 79 18 98 Room Air 09/01/22 10:00 140/94 09/01/22 09:00 84 15 97 Room Air 09/01/22 09:00 137/81 09/01/22 08:00 72 13 97 Room Air 09/01/22 08:00 136/89 09/01/22 07:00 75 12 97 Room Air 09/01/22 07:00 142/95 H 09/01/22 07:07 79 PG Care Time/CCT Total # of Minutes Spent Total Time Spent with Patient: Total time spent is greater than 50% in coordination of care (as documented) at patient's floor/unit and/or counseling patient: Coding Level of Care Code 31094 SUB INP/OBS CARE 3/50MIN Diagnoses ST elevation myocardial infarction (STEMI) I21.3 Atherogenic dyslipidemia E78.5 Benign essential hypertension I10
[2022-09-01] MEDS: ACETAMINOPHEN 325 MG TAB PO PRN (20:37)
[2022-09-02 04:41] LABS: Basophils # (auto) 0.07 K/uL (0-0.2); Basophils % (auto) 0.5 %; Eosinophils # (auto) 0.08 K/uL (0-0.50); Eosinophils % (auto) 0.5 %; Hematocrit (blood only) 41.5 % (42.0-52.0); Hemoglobin 14.7 g/dl (14.0-18.0); Immature Granulocytes # (auto) 0.06 K/uL (0.01-0.20); Immature Granulocytes % (auto) 0.4 %; Lymphocytes # (auto) 3.28 K/uL (1.2-3.4); Lymphocytes % (auto) 21.3 %; Mean Corpuscular Hemoglobin 31.7 pg (25.0-34.0); Mean Corpuscular Hgb Conc 35.4 g/dL (32.0-36.0); Mean Corpuscular Volume 89.4 fL (80.0-100.0); Mean Platelet Volume 9.5 fL (9.4-12.4); Monocytes # (auto) 0.85 K/uL (0.11-0.59); Monocytes % (auto) 5.5 %; Neutrophils # (auto) 11.05 K/uL (1.40-6.50); Neutrophils % (auto) 71.8 %; Platelet Count 338 K/uL (130-400); RDW Coefficient of Variation 13.1 % (11.5-14.5); RDW Standard Deviation 43.3 fL (36.4-46.3); Red Blood Count 4.64 M/uL (4.70-6.10); White Blood Count 15.39 K/ul (4.8-10.8)
[2022-09-02 04:50] LABS: BUN Creatinine Ratio 19.7 (10-20); Calcium 9.3 mg/dl (8.6-10.3); Creatinine Clr Calc Pharmacy 147.2 ml/min; Est GFR (African American) 125.3 ml/min; Est GFR (Non-African American) 108.1 ml/min; Magnesium 2.1 mg/dl (1.7-2.4); Potassium 3.7 mmol/L (3.5-5.1)
[2022-09-02 04:56] LABS: Troponin I High Sensitivity 3420.8 pg/ml (0-20)
[2022-09-02] MEDS: ACETAMINOPHEN 325 MG TAB PO PRN (06:52)
[2022-09-02] MEDS: FLUTICASONE/VILANTEROL 100/25MCG 14 PUFFS/INHALER INH SCH (07:49)
[2022-09-02] MEDS: ASPIRIN 81 MG ECTAB PO SCH (07:49)
[2022-09-02] MEDS: ATORVASTATIN 40 MG TAB PO SCH (07:49)
[2022-09-02] MEDS: METOPROLOL TARTRATE 25 MG TAB PO SCH (07:54)
[2022-09-02] MEDS: TICAGRELOR 90 MG TAB PO SCH (07:54)
--- NOTE | 2022-09-02 11:12 | XCELERA ---
[id number] [id number]
--- NOTE | 2022-09-02 11:39 | Discharge Summary ---
Date of Service September 02, 2022 Admission HPI Per Admitting Provider 57-year-old male past medical significant for back pain, knee pain says he takes ibuprofen on a regular basis came with chest pain and found to have acute ST elevated PA. Status postcardiac cath and stent to LAD. Patient states around 4 PM he developed severe chest pain radiating to his back associated with nausea and vomiting and sweating. He tried to call 911 but his phone did not work. At 4:30 PM he called his she came and called EMS and was brought in here. As per cardiology notes initial EKG is with no acute ST elevations but on repeat EKGs as he was having increased pains showed ST elevations in anterolateral leads. Patient says since last several weeks he is feeling very weak and fatigued easily and short of breath on exertion. He has a knee pain pains. So he cannot climb steps. Says he smokes 1 pack of cigarettes daily. Currently he has mild soreness in the chest. Denies any headache. No blurred visions or earache runny nose or sore throat. No cough. Afebrile. No abdominal pain. Normal bowel and bladder movements. Past medical history as mentioned above Past surgical history knee surgeries. Principal Diagnosis STEMI CAD with PCI to LAD Current smoker Hyperlipidemia Acute Systolic CHF Discharge Exam sitting in bed. eating lunch comfortable breathing comfortably on room air Abdomen with no distension No lower extremity swelling Discharge Data Allergies Allergy/AdvReac Type Severity Reaction Status Date / Time Penicillins Allergy Unknown Verified 08/31/22 21:12 Consultations 08/31/22 20:24 Consult Slab Inspector Routine Procedures Performed Operation Date: 08/31/22 18:40 Actual Procedures p Cineradiography w/Routine Exam - Tej Gupta MD, PhD p Cath, Coronaries ONLY (no LV) - Tej Gupta MD, PhD p Aspiration/PCI w/YANNI for Stemi - Tej Gupta MD, PhD Ordered Studies 08/31/22 18:37 CL Cath Imgs for PACS use only Stat 09/01/22 12:52 CT chest diagnostic w con Routine Hospital Course (1) ST elevation myocardial infarction (STEMI): 57-year-old male current smoker and not previously on medications presented to the ER with acute chest pain and found to have ST elevated PA. S/p cardiac cath mid LAD 99% occlusion, ostial 99 % occlusion Status post drug-eluting stent to mid and early distal LAD. 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 TTE shows LVEF 40-45% Patient is uninsured and has medical assistance pending. Arrangements made for him to have 30 day supply of Brilinta. He was instructed to call his tub chucker office immediately or return to ER if he loses access to his medications. The importance of uninterrupted dual antiplatelet inhibitor therapy was explained to him (2) Current smoker: Smoking cessation encouraged Total Time Total Time Spent Total Time Spent (In Minutes): 35 Discharge Plan Discharge Items Patient Disposition: Home - Self-Care Reason For Visit: STEMI Discharge Diagnosis: ACUTE stemi s/p PCI HTN atherogenic dyslipidemia Condition on Discharge: Good Activity: Per Instructions section Non-emergency contact: [employer] Staff Officer Call non-emergency contact if: you have any medication questions, your symptoms worsen, your pain is not controlled, you have a fever, your wound has increased redness and your wound has increased drainage Follow-up/Referrals: Tej Gupta MD, PhD [Physician] - 09/08/22 9:30 am (Follow up scheduled with Dr. Gupta 09/08/22 @ 9:30 am.) Derik Ordonez MD [Hospitalist] - (Date & Time 09/09/2022 11:20 AM Provider Derik Ordonez MD Department Family Medicine [facility] ) Diet: Heart Healthy Add Attending Provider Instructions: ACTIVITY RECOMMENDATIONS: It is common to feel weak and fatigue for a few days. * Do not drive or operate any motorized equipment for the next three days. * Limit stair usage (2 or 3 trips a day only) for the next three days. * Do not lift anything heavier than 10 pounds for the next three days. * Do not engage in vigorous exercise or any sports for the next five days. * You may shower the day after your procedure, but do not immerse the area for three days. Cleanse the site gently with soap and water. SPECIAL CARE INSTRUCTIONS: * You may replace the pressure dressing or band-aid the morning after the procedure. * After your procedure, it is normal to have a small bruise or small lump at the site. Examine your site daily for any change in the bruise or lump, redness, swelling, drainage or numbness. Notify your doctor if any change. BLEEDING: * If there is a small amount of bleeding at the site, lie down and apply firm pressure with a clean cloth for ten minutes. When the bleeding stops, lie quietly keeping the procedure limb straight for six hours. Notify your doctor as soon as possible. * If the bleeding does not stop after ten minutes or if there is a large amount of bleeding or spurting, call 911 immediately. Continue to lie down and hold firm pressure until help arrives. SKIN IRRITATION: * You may experience some redness and/or swelling in the area where radiation was administered. If any skin irritation occurs, please contact your family physician. FOLLOW UP VISIT: Keep any scheduled doctor appointments. Pending Studies at Discharge: No Stand-Alone Forms: My [facility] [employer], Smoking Cessation Medications and DC Order Prescriptions: New atorvastatin 40 mg Tablet 40 mg PO QAM Qty: 30 11RF aspirin 81 mg Tablet,Delayed Release (Dr/Ec) 81 mg PO QAM Qty: 30 11RF metoprolol tartrate 25 mg Tablet 25 mg PO BID Qty: 60 11RF Brilinta 90 mg Tablet 90 mg PO BID Qty: 60 11RF Discharge Orders: Discharge Order (Routine); Ordered 09/02/22 Ordered By: Tej Gupta Admission Data Admit Date/Time: 08/31/22 20:24 Attending Provider: Sb Powell Admit Provider: Tej Gupta Primary Care Provider: PCP,NO Other Providers: Hansel Camacho ; Jackson Morgan ; Eduardo Pappas Seth D. ; German Wray ; Jose Raul Leggett ; Jass Costello ; Izzy Braun ; Darien Niño ; Yvonne Celis ; Lucia Abdullahi ; Grace Anderson Other Interventions: Discharge Summary Assessment (RN) Last Done: 09/02/22 10:24
== END 2022-09-02 12:08 | disposition home or self-care (01) | DRG 246 ==
LOC: ED 17:36 → CC 18:45 → SUATTDRO 20:24 → 1E 20:24
PROC: CLB.CCO (2022-08-31 18:40)